=== PATIENT | male | born 1950 | race Caucasian/White ===

== ENCOUNTER 2016-11-24 08:52 | Inpatient (IN) | payer OTHER ==
[2016-11-24] VITALS (11 sets, daily range): BP systolic 125–150; BP diastolic 62–77; PULSE 87–120; RESP 12–20; O2SAT 95–98
[~2016-11-24] VITALS: Ht 175.3 cm; Wt 84.6 kg
[~2016-11-24 08:52] MED LIST: ALBU18HF INH; ALBU8.5H2 INHALATION; AMT25T PO; FLUT12AE10 IH; LOSA100T3 PO; LOVA20TA PO; METO25TA6 PO; OMEP20CA11 PO; OXYC1TAB24 PO; PRE20 PO
[2016-11-24 09:33] LABS: BASOPHILS % (AUTO) 0.2 % (0-3); EOSINOPHILS % (AUTO) 0.3 % (0-5); Mean Corpuscular Hemoglobin 31.3 pg (27.0-35.0); Mean Corpuscular Volume 92.4 fL (81-100); NEUTROPHILS % (AUTO) 78.9 % (40-74); Platelet Count 246 bil/L (150-400)
--- NOTE | 2016-11-24 09:44 | DRSVH ---
PROCEDURE: X-RAY CHEST, TWO VIEWS ([id number]) INDICATIONS: chest pain/SOB TECHNIQUE: 2 views of the chest were acquired. COMPARISON: [facility], CR, XR CHEST 1VW (PORTABLE), 01/07/2016, 11:15. [facility], CR, CHEST 2VW, 10/17/2012, 12:08. FINDINGS: Surgical changes and devices: None. Lungs and pleura: No pleural effusions or pneumothorax. Lungs are clear. Mediastinum: Mediastinal contours are normal. Heart size is normal. Bones and chest wall: No suspicious bony abnormalities. Soft tissues appear unremarkable. IMPRESSION: No acute process. Dictated by: Rona Fields M.D. on 11/24/2016 at 9:42 Approved by: Rona Fields M.D. on 11/24/2016 at 9:42
[2016-11-24 10:11] LABS: Magnesium 2.1 mg/dL (1.6-2.6)
--- NOTE | 2016-11-24 10:11 | ED.REPORT ---
HPI-Dyspnea / Wheezing Date of Service Nov 24, 2016 ED Provider: Gunnar Norris MD Patient is a 66 year old male who presents to the ED complaining of shortness of breath onset a few days ago. Associated symptoms include wheezing. pleuritic pain, chills, myalgia, and sweats. He denies cough, fever, or any other symptoms. He has been using his albuterol inhaler with a spacer 6x a day (normally only use in the morning and at night. He has been taking Percocet for his pain with his last dose being 2 days ago. Nursing Notes Stated Complaint: SHORT OF BREATH Chief Complaint: Respiratory Distress Nursing Notes Reviewed: Yes (Neurotrack, scroll kit not reconciled) Allergies: Coded Allergies: amoxicillin (Verified Allergy, Unknown, 11/24/16) clavulanic acid (Verified Allergy, Unknown, 11/24/16) lisinopril (Verified Allergy, Unknown, 11/24/16) Scheduled Losartan Potassium (Cozaar) 100 Mg Tablet 100 MG PO DAILY Lovastatin (Lovastatin) 20 Mg Tablet 20 MG PO HS Metoprolol Tartrate (Metoprolol Tartrate) 25 Mg Tablet 25 MG PO am Metoprolol Tartrate (Metoprolol Tartrate) 25 Mg Tablet 50 MG PO evening Scheduled PRN Albuterol HFA (Proair HFA) 8.5 Gm Hfa.aer.ad 2 PUFFS INHALATION Q4H PRN PRN For Shortness of Breath Albuterol Sulfate (Ventolin HFA Inhaler) 200 Puff/18 Gm Inhaler 2 PUFF INH Q4- 6H PRN PRN For Wheezing Amitriptyline (Amitriptyline) 25 Mg Tab 25 MG PO HS PRN PRN For Sleep Fluticasone Propionate (Flovent HFA 220 mcg) 12 Gm Aer.w.adap 2 PUFFS IH BID PRN PRN For Shortness of Breath Omeprazole (Omeprazole) 20 Mg Capsule.dr 20 MG PO DAILY PRN PRN For Dyspepsia or Heartburn oxyCODONE-Acetaminophen 5-325 mg (oxyCODONE-Acetaminophen 5-325 mg) 1 Each Tablet 1 TAB PO Q6H PRN PRN For Pain General Time Seen by MD: 10:07 Chief Complaint Shortness of breath Hx Obtained From: Patient, Spouse Arrived By: Walk-in Sudden in Onset?: Yes Onset Occurred: 3 days ago Symptom Duration: Since onset Past Medical History Past Medical History Notes: Admitted from 11/25/2015 - 12/02/2015: Discharge diagnoses: 1. Chronic obstructive pulmonary disease exacerbation. 2. Probable pneumonia, pneumococcal, community-acquired, right middle lobe and right lower lobe. 3. Leukocytosis, likely due to steroids. 4. Adenopathy by chest CT, with need for further followup. 5. Hypertension. 6. Chronic back pain, on chronic narcotics. Past Medical History Reports: COPD, Coronary artery disease, GERD, Hyperlipidemia, Hypertension Past Surgical History Nose operations Smoking History Current Every Day Smoker Social History Alcohol Use: 1-3 per day Drug Use: Denies drug use Other Social History: , Local resident Occupation [employer] Status Independent Review of Systems Constitutional: Reports: Chills, Denies: Fever Respiratory: Reports: Pleuritic pain, Shortness of breath, Denies: Non-productive cough Musculoskeletal: Reports: Myalgia Skin: Reports Diaphoresis Complete sys rev & neg: except as marked. Physical Exam Initial Vital Signs Vital Signs (First) Date Time Temp Pulse Resp B/P Pulse Ox O2 Delivery O2 Flow Rate FiO2 11/24/16 08:54 36.2 120 18 139/77 97 Room Air 11/24/16 10:39 2 Initial VS: Reviewed, Vital signs abnormal Head / Eyes: Atraumatic, Normocephalic Skin: Warm, Dry Neurologic: Alert, Oriented, Nonfocal Psychiatric: Mood/affect normal, Behavior normal, Normal thought content General/Constitutional: Awake, Alert Distress / Hydration: Positive: Distress mild Fatigued Neck: No JVD Resp Distress / Stridor: Positive: Resp distress mild Profound bronchospasms in all mcclure. Hacking cough. Still able to converse Cardiovascular: Regular rhythm, Heart sounds NL, Peripheral circulation NL Heart Rate / Rhythm: Positive: Tachycardia Interpretation & Diagnostics Lab Results Interpretation Result Diagram: 11/24/16 0920 11/24/16 0920 Test 11/24/16 09:20 11/24/16 10:53 White Blood Count 25.9th/mm3 (3.8-10.1) Red Blood Count 5.11mil/mm3 (4.40-5.80) Hemoglobin 16.0g/dL (13.8-17.2) Hematocrit 47.2% (41.0-50.0) Mean Corpuscular Volume 92.4fL (81-100) Mean Corpuscular Hemoglobin 31.3pg (27.0-35.0) Mean Corpuscular Hemoglobin Concent 33.9% (32.0-37.0) Red Cell Distribution Width 14.3% (12.3-15.4) Platelet Count 246bil/L (150-400) Neutrophils (%) (Auto) 78.9% (40-74) Lymphocytes (%) (Auto) 10.3% (14-46) Monocytes (%) (Auto) 10.0% (4-12) Eosinophils (%) (Auto) 0.3% (0-5) Basophils (%) (Auto) 0.2% (0-3) Sodium Level 136mEq/L (134-144) Potassium Level 3.8mEq/L (3.5-5.2) Chloride Level 96mEq/L (97-108) Carbon Dioxide Level 24mmol/L (18-29) Blood Urea Nitrogen 13mg/dL (8-27) Creatinine 0.76mg/dL (0.76-1.27) Estimat Glomerular Filtration Rate 110mL/min (>59) Glucose Level 134mg/dL (60-99) Lactic Acid Level 1.9mmol/L (0.4-2.0) Calcium Level 9.5mg/dL (8.5-10.1) Magnesium Level 2.1mg/dL (1.6-2.6) Total Bilirubin 1.5mg/dL (0.0-1.2) Aspartate Amino Transf (AST/SGOT) 17U/L (0-50) Alanine Aminotransferase (ALT/SGPT) 15U/L (0-44) Alkaline Phosphatase 93U/L (25-160) Troponin T < 0.010ug/L (0.0-0.011) Total Protein 7.6g/dL (6.4-8.4) Albumin 4.4g/dL (3.4-5.0) Hold [place]is Top Tube Received (Received) Hold Urine Received (Received) Lab Results Interpretation: CBC positive severe leukocytosis CMP normal except for marginally elevated bilirubin of uncertain clinical significance Flu negative Lactic acid normal ECG Interpretation ECG Interpretation: Sinus tachycardia rate 108 Time: 09:20 Interpreted by: ED physician X-Ray Chest Interpretation Chest Xray Interpretation: IMPRESSION: No acute process. Dictated by: Rona Fields M.D. on 11/24/2016 at 9:42 Approved by: Rona Fields M.D. on 11/24/2016 at 9:42 View: AP & lat Interpretation / Wet Read by: Interpret - Radiologist Re-Eval/Medical Decision Med Decision/Clinical Course This is a 66-year-old male with COPD continues to smoke presents with worsening shortness of breath, cough, chills, body aches and sweats. On exam he is severely bronchospastic, and reports short of breath with any minimal exertion and significant worsening his baseline. He has been using his home albuterol and FLOVENT added increased rate, but due the severity of symptoms came in. He is Afebrile, but he he is severely bronchospastic and gets short of breath with minimal exertion. He has no prior cardiac history no edema in his legs and overt signs of heart failure. He has no risk factors venous thromboembolus. X-ray is negative. Swab is negative. The patient received aggressive albuterol Atrovent and steroids. He remains bronchospastic and symptomatic even though his marginally improved. Given the severity of symptoms he is being admitted. Given the severity of his underlying COPD and a presentation and the severe leukocytosis he is being covered with antibiotics. Case has been Discussed the hospitalist. Source of Hx: Old records Re-Evaluation/Progress : Time of Eval: 11:34 )( Re-Eval Resp / Chest: Mild respiratory distress Re-Evaluation/Progress Note: Discussed need for admission. Patient understands and agrees with plan. All questions addressed at this time. Consultation : Referral / Consult Name: Pablo Nelson MD Consulted With: Hospitalist Call Returned at: 11:09 Rn Clinical Trials: Will see patient, Agrees with eval, Agrees with plan, Accepts admit Note: Discussed patient's case. Accepts admit. Differential Diagnosis: Positive: COPD exacerbation, Upper resp infection, Negative: Acute coronary syndrome, Airway obstruction, Cardiogenic shock, Hypertensive emergency, Myocardial infarction, Pulmonary embolism Counseled Regarding: Diagnosis, Lab results, Need for admission Discharge & Departure Impression: Primary Impression: COPD exacerbation Disposition: ADMITTED TO HOSPITAL Referrals: Urvashi Moore MD (PCP) Scribe Attestation Portions of this note were transcribed by Shaggy Anthony. Dr. Jr Diaz personally performed the history, physical exam and medical decision-making; I reviewed and confirmed the accuracy of the information in the transcribed note. Signed by: Shaggy Anthony 11/24/16, 1136 copies to: Urvashi Moore MD, Matthew F MD Nov 24, 2016 10:11 SHAGGY ANTHONY Nov 24, 2016 10:27
[2016-11-24 10:12] LABS: TROPONIN T < 0.010 ug/L (0.0-0.011)
[2016-11-24] MEDS ORDERED: 0.9% Sodium Chloride 1,000 ML IV ONE (10:20)
[2016-11-24] MEDS ORDERED: Ipratropium 0.02% 0.5 mg/2.5 mL Inhalation Solution NEB ONE ×2 (10:20→10:21)
[2016-11-24] MEDS ORDERED: Albuterol 2.5 mg/3 mL Inhalation Solution NEB ONE (10:20)
[2016-11-24] MEDS ORDERED: MethylprednisoLONE Sodium Succinate 62.5 mg/mL 2 mL Inj IVPUSH ONE (10:20)
[2016-11-24] MEDS ORDERED: oxyCODONE-Acetamin 5-325 mg Tablet PO ONE ×2 (10:20→15:15)
[2016-11-24] MEDS ORDERED: Azithromycin Inj 500 MG in Dextrose 5% w/Vial Mate 250 ML IV ONE (10:20)
[2016-11-24] MEDS ORDERED: METO25TA6 PO (11:33)
[2016-11-24] MEDS ORDERED: Ondansetron 2 mg/mL 2 mL Inj IVPUSH PRN (12:00)
[2016-11-24] MEDS ORDERED: Alum-Mag Hydrox-Simeth 30 mL Suspension PO PRN (12:00)
[2016-11-24] MEDS ORDERED: Polyethylene Glycol (PEG) 17 Gm Powder PO PRN (13:35)
[2016-11-24] MEDS ORDERED: Albuterol 2.5 mg/3 mL Inhalation Solution NEB PRN (13:35)
[2016-11-24 13:49] LABS: APPEARANCE,URINE TURBID (CLEAR,HAZY); COLOR,URINE DARK YELLOW (YELLOW); OCCULT BLOOD,URINE NEGATIVE (NEGATIVE); UROBILINOGEN,URINE NORMAL (NORMAL)
--- NOTE | 2016-11-24 14:40 | PCM.HPMED ---
Subjective Date of Service Nov 24, 2016 Primary Provider: Admitting Physician: Primary Care Physician: Urvashi Moore MD Attending Physician: Admit Status: From the Emergency Department, Admit to [place] Team Chief Complaint: Dyspnea History of Present Illness: Patient is a pleasant 66 year-old male with hx of COPD, and chronic smoking, CAD , hypertension, hyperlipidemia, GERD and chronic low back pain, who presents to the ED complaining of worsening dyspnea, mild cough, productive green phlegm, onset 3 days ago. Associated symptoms include wheezing. pleuritic pain, subjective fever, chills, myalgia, and sweats. He denies chest pain, nausea or vomiting. He did run out of his Flovent inhaler one week ago, and in the past 3 days had to use the albuterol inhaler up to 6 times, without much relief. Patient states he had a very similar episode one year ago and was hospitalized for 8 days. He only took Prednisone shortly after being discharged from the hospital last time, and has not taken since. Denies any sick contacts. Received flu shot Aug, 2016. Review of Systems: Complete system reviewed and was negative as otherwise noted in HPI. Allergies Coded Allergies: amoxicillin (Verified Allergy, Unknown, 11/24/16) patient reports of mild nausea clavulanic acid (Verified Allergy, Unknown, 11/24/16) lisinopril (Verified Allergy, Unknown, 11/24/16) Home Medications Losartan Potassium (Cozaar) 100 Mg Tablet 100 MG PO DAILY Lovastatin (Lovastatin) 20 Mg Tablet 20 MG PO HS Metoprolol Tartrate (Metoprolol Tartrate) 25 Mg Tablet 50 MG PO evening Scheduled PRN Albuterol HFA (Proair HFA) 8.5 Gm Hfa.aer.ad 2 PUFFS INHALATION Q4H PRN PRN For Shortness of Breath Amitriptyline (Amitriptyline) 25 Mg Tab 25 MG PO HS PRN PRN For Sleep Fluticasone Propionate (Flovent HFA 220 mcg) 12 Gm Aer.w.adap 2 PUFFS IH BID PRN PRN For Shortness of Breath Omeprazole (Omeprazole) 20 Mg Capsule.dr 20 MG PO DAILY PRN PRN For Dyspepsia or Heartburn oxyCODONE-Acetaminophen 5-325 mg (oxyCODONE-Acetaminophen 5-325 mg) 1 Each Tablet 1 TAB PO Q6H PRN PRN For Pain PMH COPD CAD GERD HTN HLP Surgical History nose surgery Family History Significant for premature cardiovascular disease in a brother who had a stroke at the age of 53. In addition, his father had an OR, but at a relatively elderly age. 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 [place] Hx Alcohol Use: Yes ("2 beers during football game") Hx Substance Use: Yes (smoke marijuana couple times a week) Hx Tobacco Use: Yes Smoking Status: Current Every Day Smoker (down to 1/2 pack a day) Living Arrangement: with Family Exam Vital Signs Vital Sign - Last Date Time Temp Pulse Resp B/P Pulse Ox O2 Delivery O2 Flow Rate FiO2 11/24/16 13:20 107 19 126/71 96 Nasal Cannula 2 11/24/16 08:54 36.2 Exam General/Constitutional: AAO x3, HEENT Atraumatic, Normocephalic, anicteric sclera, dry mucous membranes Neck Supple, No JVD Lungs: Significant rhonchi in all lung mcclure, Mild respiratory distress Cardiovascular: Regular rhythm, Heart sounds NL, Peripheral circulation NL, no edema Skin: Warm, dry and intact Neurologic: Alert, Oriented, Nonfocal Psychiatric: Mood/affect normal, Behavior normal, Normal thought content Lab and Diagnostics Result Diagram: 11/24/1691911/24/16919 X-Rays, CTs and MRIs Date of Service: 11/24/16907 PROCEDURE: X-RAY CHEST, TWO VIEWS ([id number]) INDICATIONS: chest pain/SOB IMPRESSION: No acute process. Dictated by: Rona Fields M.D. on 11/24/2016 at 9:42 Assessment & Plan Patient is a pleasant 66 year-old male with hx of COPD, and chronic smoking, CAD , hypertension, hyperlipidemia, GERD and chronic low back pain, who presents to the ED complaining of worsening dyspnea, mild cough, productive green phlegm, onset 3 days ago. COPD exacerbation, present on admission. patient out of his Flovent and has not been using for one week Solu Med 125mg IV every 8H today, will de-escalate tomorrow DuoNebs Q4H Albuterol PRN Probable pneumonia, community acquired, pneumococcal, present on admission. WBC 26 not on steroids. Rocephin and azithromycin (Day#1) CXR showed no acute process Procalcitonin pending BCx pending sputum pending PCR panel pending legionella ag and pneumococcal antigen pending Hypertension, chronic Continue losartan, amlodipine, and metoprolol. Chronic back pain continue home dose Percocet GERD Home dose omeprazole PRN Disposition. Anticipate discharge in 2-3 days. Problems: VTE Prophylaxis: Sub-Q Enoxaparin VTE Mechanical Devices: SCD Pain Evaluation: Adequate Pain Control GI Prophylaxis: Not indicated VTE Prophylaxis: Sub-Q Enoxaparin Resuscitation Status: CPR: Attempt Resuscitation Attending Statement The patient was seen and examined together with Dr. Quinones on 11/24/2016 and I agree with the history, exam and plan as outlined in the note above. Adrian Quinones DO Nov 24, 2016 13:52 Pablo Nelson MD Nov 25, 2016 10:37
[2016-11-24] MEDS: Albuterol-Ipratropium 3 mL Inhalation Solution NEB SCH ×2 (16:39→20:00)
[2016-11-24] MEDS: MethylprednisoLONE Sodium Succinate 62.5 mg/mL 2 mL Inj IVPUSH SCH (17:07)
[2016-11-24] MEDS: 0.9% Sodium Chloride 1,000 ML IV SCH (17:08)
[2016-11-24] MEDS ORDERED: Pantoprazole 40 mg ER24 Tablet PO PRN (18:20)
--- NOTE | 2016-11-24 18:36 | NUR ---
ADMIT Admitted a 66/M into room 3015 this afternoon at 1600 following report from DAKOTA العراقي RN. Pt arrived via w/c, amb to BR without assist and steady on feet. He arrived on 2L via NC, 02 sat 97% so RT decreased 02 to 1L. Pt stated he has been having increasing dyspnea, a productive cough and feels "sore and stiff all over." Pt did c/o heartburn upon arrival, PRN Maalox effective. Pt is using urinal at bedside to conserve energy. IV in L AC, NS running at 100ml/hr. Pt reports a flu shot in August of 2016. TELE placed, currently running SR in the 's. Blood cx are pending, flu panel was negative for Influenza A & B. Pt is a daily smoker. Samantha accompanying pt. Upon arrival, pt introduced to staff and call light/bed controls. Currently resting, bed in lowest, locked position.
[2016-11-24] MEDS: oxyCODONE-Acetamin 5-325 mg Tablet PO PRN (19:53)
[2016-11-25] VITALS (14 sets, daily range): BP systolic 118–148; BP diastolic 56–80; PULSE 70–94; RESP 12–22; O2SAT 94–98
[2016-11-25] MEDS: Albuterol-Ipratropium 3 mL Inhalation Solution NEB SCH ×6 (00:49→20:05)
[2016-11-25] MEDS: MethylprednisoLONE Sodium Succinate 62.5 mg/mL 2 mL Inj IVPUSH SCH ×3 (00:53→16:30)
[2016-11-25] MEDS: oxyCODONE-Acetamin 5-325 mg Tablet PO PRN ×5 (01:53→20:23)
[2016-11-25] MEDS: 0.9% Sodium Chloride 1,000 ML IV SCH ×3 (02:57→20:28)
--- NOTE | 2016-11-25 04:42 | NUR ---
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 PRN dose of Amitriptyline given with no success. Pt reports chronic pain and takes Oxycodone 5/325 at home Q4H. Oxycodone ordered and given Q6H, monitoring to see if pt can tolerate longer frequency. Will pass to day shift and possible need to ask MD about changing frequency.
[2016-11-25 07:19] LABS: BASOPHILS % (AUTO) 0 % (0-3); EOSINOPHILS % (AUTO) 0 % (0-5); MONOCYTES % (AUTO) 2.6 % (4-12); Mean Corpuscular Volume 93.5 fL (81-100); Platelet Count 241 bil/L (150-400)
[2016-11-25] MEDS: cefTRIAXone Inj 2,000 MG in IV Premix 1 EACH IV SCH (07:56)
[2016-11-25] MEDS: Azithromycin Inj 500 MG in Dextrose 5% w/Vial Mate 250 ML IV SCH (08:52)
[2016-11-25] MEDS ORDERED: guaiFENesin 600 mg ER12 Tablet PO SCH (10:32)
--- NOTE | 2016-11-25 13:59 | NUR ---
Social Work-initial assessment/readiness for discharge: Data:EMR reviewed. Pt is a 66 y/o male who was admitted on 11/24/16 for COPD exacerbation per H&P. Pt's insurance is [employer] and PCP is Urvashi Moore MD. EMR Reviewed. SW met with pt to discuss discharge planning, SW role explained. Pt resides at home with his in [place] where he remains independent with ADLs. Pt does not use any DME and drives. Pt has no HH or SNF history. Pt has no exterminator termite care or VA benefits. SW discussed DPOA/advanced with pt, pt has not completed this information and is not interested at this time. Per RN notes, pt has been up independent in his room. Pt's to provide transport home. No anticipated discharge needs. SW will continue to follow if needs arise. Assessment:Pt who is independent at baseline. Plan:Pt to discharge home when medically stable via POV. No anticipated discharge needs. SW will continue to follow if needs arise. JOSHUA Madrigal
[2016-11-25] MEDS: guaiFENesin 600 mg ER12 Tablet PO SCH ×2 (14:07→20:24)
--- NOTE | 2016-11-25 14:22 | PCM.PNMED ---
Subjective Date of Service Nov 25, 2016 Subjective Overnight events: Patient had difficulty sleeping due to chronic back pain and feeling chills then feeling hot. Today, patient reports his breathing has improved, but still having difficulty taking deep breaths. Patient states the nebulizers help much. Breathing treatment helps much. Denies fevers, chills, nausea or vomiting. Patient determined to quit smoking. Exam Vital Signs Vital Sign - Last Date Time Temp Pulse Resp B/P Pulse Ox O2 Delivery O2 Flow Rate FiO2 11/25/16 07:30 72 18 98 Room Air 11/25/16 05:33 36.4 118/56 11/24/16 20:38 1.00 Intake and Output 11/24/16 11/24/16 11/25/16 Cumulative From/Thru 15:00 23:00 07:00 11/24/16 08:54 - 11/25/16 06:02 Intake Total 1000 ml 780 ml 1780 ml Output Total 200 ml 450 ml 650 ml Balance 1000 ml -200 ml 330 ml 1130 ml Intake Oral 780 ml 780 ml IV Total 1000 ml 1000 ml Output Urine Total 200 ml 450 ml 650 ml # Bowel Movements 0 0 Exam General/Constitutional: AAO x3, NAD HEENT Atraumatic, Normocephalic, anicteric sclera, moist mucous membranes Neck Supple, No JVD Lungs: Expiratory wheezes in all lung mcclure, much improved from yesterday Cardiovascular: Regular rhythm, Heart sounds NL, Peripheral circulation NL, no edema Skin: Warm, dry and intact MSK: Tender to palpation on low back Neurologic: Alert, Oriented, Nonfocal Psychiatric: Mood/affect normal, Behavior normal, Normal thought content IVs and Medications Medications Reviewed: Medications were reviewed in detail Lab and Diagnostics Result Diagram: 11/25/16 0505 11/25/16 0505 X-Rays, CTs and MRIs Date of Service: 11/24/16 0908 PROCEDURE: X-RAY CHEST, TWO VIEWS ([id number]) INDICATIONS: chest pain/SOB IMPRESSION: No acute process. Dictated by: Rona Fields M.D. on 11/24/2016 at 9:42 Assessment & Plan Patient is a pleasant 66 year-old male with hx of COPD, and chronic smoking, CAD , hypertension, hyperlipidemia, GERD and chronic low back pain, who presents to the ED complaining of worsening dyspnea, mild cough, productive green phlegm, onset 3 days ago. Day 1. COPD exacerbation, present on admission. patient out of his Flovent and has not been using for one week Solu Med 60mg IV every 8H today, will transit to PO prednisone tomorrow if patient continues to improve DuoNebs Q4H Albuterol PRN Probable pneumonia, community acquired, pneumococcal, present on admission. WBC 26 not on steroids, improving. Rocephin and azithromycin (Day#1) will consider DC if procalcitonin is negative CXR showed no acute process Procalcitonin pending BCx - negative 24H sputum pending strep negative and influenza screen negative PCR panel pending legionella ag pending Hypertension, chronic Continue losartan, amlodipine, and metoprolol. Chronic back pain continue home dose Percocet GERD Home dose omeprazole PRN Disposition. Anticipate discharge in 2-3 days. Problems: VTE Prophylaxis: Sub-Q Enoxaparin VTE Mechanical Devices: SCD GI Prophylaxis: Not indicated VTE Prophylaxis: Sub-Q Enoxaparin VTE Mechanical Devices: Intermittant Pneumatic CD Resuscitation Status: CPR: Attempt Resuscitation Attending Statement The patient was seen and examined together with Dr. Quinones on 11/25/2016 and I agree with the history, exam and plan as outlined in the note above. Adrian Quinones DO Nov 25, 2016 08:30 Pablo Nelson MD Nov 26, 2016 13:34
--- NOTE | 2016-11-25 15:34 | NUR ---
Urination/Pain/cough Patient reporting he has the urge to urinate-but is urinating very little. Bladder scan indicated 32 mls in bladder. Patient reporting chronic back pain. Patient encouraged to sit in chair/get out of bed. Pain medication given per order with good results. Patient reporting a cough "I just feel like I have this thick/sticky stuff stuck down my throat that I can't get up". Hospitalist notified-Guaifenesin ordered.
[2016-11-25] MEDS ORDERED: guaiFENesin 20 mg/mL 10 mL Syrup PO ONE (17:45)
[2016-11-26] VITALS (16 sets, daily range): BP systolic 147–165; BP diastolic 67–82; PULSE 69–99; RESP 16–22; O2SAT 95–100
[2016-11-26] MEDS: MethylprednisoLONE Sodium Succinate 62.5 mg/mL 2 mL Inj IVPUSH SCH ×2 (00:45→09:20)
[2016-11-26] MEDS: Albuterol-Ipratropium 3 mL Inhalation Solution NEB SCH ×6 (00:45→21:09)
[2016-11-26] MEDS: oxyCODONE-Acetamin 5-325 mg Tablet PO PRN ×6 (00:48→22:57)
[2016-11-26] MEDS: 0.9% Sodium Chloride 1,000 ML IV SCH ×2 (05:34→17:55)
[2016-11-26 05:51] LABS: BASOPHILS % (AUTO) 0 % (0-3); EOSINOPHILS % (AUTO) 0 % (0-5); MONOCYTES % (AUTO) 3.1 % (4-12); Mean Corpuscular Hemoglobin 31.6 pg (27.0-35.0); Mean Corpuscular Volume 94.7 fL (81-100); NEUTROPHILS % (AUTO) 93.8 % (40-74); Platelet Count 275 bil/L (150-400)
--- NOTE | 2016-11-26 06:16 | NUR ---
Respiratory effort, pain and sleep. Patient reported that between intermittent bouts of chronic pain he slept well. Patient required consistent nebs and pain medications to keep him comfortable throughout the night. Patient's vitals remained stable and at this point patient is free of complaints.
--- NOTE | 2016-11-26 07:32 | NUR ---
Fall While giving report to the on coming shift patient was heard yelling. Patient was found on one knee at the end of his bed holding on to the foot board. Patient reported that he had gotten dizzy and fell to his knees. Patient was assessed for injury and then helped back into bed. Patient reports that he is feeling well other then his knees hurt. Vitals are stable. CMS is intact to baseline in all extremities. Patient denies new head, neck or back pain. Patient denies striking his head or LOC. Patient is A/Ox4 and answering all questions appropriately.
[2016-11-26] MEDS: guaiFENesin 600 mg ER12 Tablet PO SCH ×2 (09:20→20:03)
[2016-11-26] MEDS: Azithromycin Inj 500 MG in Dextrose 5% w/Vial Mate 250 ML IV SCH (09:21)
[2016-11-26] MEDS: cefTRIAXone Inj 2,000 MG in IV Premix 1 EACH IV SCH (11:31)
[2016-11-26] MEDS: predniSONE 20 mg Tablet PO SCH (11:54)
--- NOTE | 2016-11-26 12:55 | PCM.PNMED ---
Subjective Date of Service Nov 26, 2016 Subjective No overnight events. Today, patient states as long as he is lying down, he is not short of breath, but just going to the bathroom makes breathing difficult. Still cannot cough up what he feels needs to be come up, although patient states the mucus is getting thinner. Denies CP, fevers or chills. Exam Vital Signs Vital Sign - Last Date Time Temp Pulse Resp B/P Pulse Ox O2 Delivery O2 Flow Rate FiO2 11/26/16 07:43 82 18 99 Nasal Cannula 4.00 11/26/16 07:19 36.4 155/76 Intake and Output 11/25/16 11/25/16 11/26/16 Cumulative From/Thru 15:00 23:00 07:00 11/24/16 08:54 - 11/26/16 05:46 Intake Total 1388 ml 1785 ml 1176 ml 6129 ml Output Total 200 ml 850 ml Balance 1388 ml 1585 ml 1176 ml 5279 ml Intake Oral 700 ml 1480 ml IV Total 1388 ml 1085 ml 1176 ml 4649 ml Output Urine Total 200 ml 850 ml # Bowel Movements 0 Exam General/Constitutional: AAO x3, mild respiratory distress after sitting back down HEENT Atraumatic, Normocephalic, anicteric sclera, moist mucous membranes Neck Supple, No JVD Lungs: Expiratory wheezes in all lung mcclure, slightly worsened from yesterday Cardiovascular: Regular rhythm, Heart sounds NL, Peripheral circulation NL, no edema Skin: Warm, dry and intact Neurologic: Alert, Oriented, Nonfocal Psychiatric: Mood/affect normal, Behavior normal, Normal thought content IVs and Medications Medications Reviewed: Medications were reviewed in detail Lab and Diagnostics Result Diagram: 11/26/1637 11/26/16 0537 X-Rays, CTs and MRIs Date of Service: 11/24/16 0908 PROCEDURE: X-RAY CHEST, TWO VIEWS ([id number]) INDICATIONS: chest pain/SOB IMPRESSION: No acute process. Dictated by: Rona Fields M.D. on 11/24/2016 at 9:42 Assessment & Plan Patient is a pleasant 66 year-old male with hx of COPD, and chronic smoking, CAD , hypertension, hyperlipidemia, GERD and chronic low back pain, who presents to the ED complaining of worsening dyspnea, mild cough, productive green phlegm, onset 3 days ago. Day 2. COPD exacerbation, present on admission. Ongoing. patient out of his Flovent and has not been using for one week PO prednisone 40mg DuoNebs Q4H and Albuterol PRN Acapella and incentive spirometry Repeat CXR this am patient to be up and active today to prevent atelectasis Probable pneumonia, community acquired, pneumococcal, present on admission. WBC 28 currently on steroids Continue Rocephin and azithromycin Day#2 CXR 11/24 showed no acute process with repeat CXR pending BCx - negative 24H strep negative and influenza screen negative PCR panel negative sputum pending legionella ag pending Hypertension, chronic Continue losartan, amlodipine, and metoprolol. Chronic back pain continue home dose Percocet GERD Home dose omeprazole PRN Disposition. Anticipate discharge in 2-3 days. Problems: VTE Prophylaxis: Sub-Q Enoxaparin VTE Mechanical Devices: SCD GI Prophylaxis: Not indicated VTE Prophylaxis: Sub-Q Enoxaparin VTE Mechanical Devices: Intermittant Pneumatic CD Resuscitation Status: CPR: Attempt Resuscitation Attending Statement The patient was seen and examined together with Dr. Quinones on 11/26/2016 and I agree with the history, exam and plan as outlined in the note above. Adrian Quinones DO Nov 26, 2016 08:45 Pablo Nelson MD Nov 27, 2016 13:55
--- NOTE | 2016-11-26 13:40 | DRSVH ---
PROCEDURE: X-RAY CHEST, TWO VIEWS ([id number]) INDICATIONS: pneumonia TECHNIQUE: 2 views of the chest were acquired. COMPARISON: [facility], CR, XR CHEST 2VW, 11/24/2016, 9:31. FINDINGS: Surgical changes and devices: None. Lungs and pleura: No pleural effusions or pneumothorax. Lungs are clear. Mediastinum: Mediastinal contours are normal. Heart size is normal. Bones and chest wall: No suspicious bony abnormalities. Soft tissues appear unremarkable. IMPRESSION: No acute cardiopulmonary findings. Dictated by: Meghan Horn M.D. on 11/26/2016 at 13:38 Approved by: Meghan Horn M.D. on 11/26/2016 at 13:38
--- NOTE | 2016-11-26 18:29 | NUR ---
Fall/Near Fall At beginning of shift change this morning, patient heard exclaiming loudly and swearing. Patient found at the foot of his bed, in the act of rising to his feet. Patient reports he was coming out the the bathroom, became dizzy and fell to his knees. No redness/bruising or apparent injury. Patient denied any increase or change from his normal pain throughout the shift. 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 Hospitalist notified.
[2016-11-27] VITALS (10 sets, daily range): BP systolic 108–158; BP diastolic 62–80; PULSE 65–98; RESP 18–24; O2SAT 93–99
[2016-11-27] MEDS: Albuterol-Ipratropium 3 mL Inhalation Solution NEB SCH ×6 (00:30→20:19)
[2016-11-27] MEDS: 0.9% Sodium Chloride 1,000 ML IV SCH ×3 (02:35→23:45)
[2016-11-27] MEDS: oxyCODONE-Acetamin 5-325 mg Tablet PO PRN ×6 (02:50→23:45)
[2016-11-27 06:58] LABS: BASOPHILS % (AUTO) 0.1 % (0-3); EOSINOPHILS % (AUTO) 0 % (0-5); Mean Corpuscular Hemoglobin 30.6 pg (27.0-35.0); Mean Corpuscular Volume 95.4 fL (81-100); Platelet Count 280 bil/L (150-400)
[2016-11-27] MEDS: predniSONE 20 mg Tablet PO SCH (08:17)
[2016-11-27] MEDS: guaiFENesin 600 mg ER12 Tablet PO SCH ×2 (08:18→20:39)
[2016-11-27] MEDS: Azithromycin Inj 500 MG in Dextrose 5% w/Vial Mate 250 ML IV SCH (08:18)
[2016-11-27] MEDS: cefTRIAXone Inj 2,000 MG in IV Premix 1 EACH IV SCH (09:33)
[2016-11-27] MEDS: Benzocaine-Menthol Lozenge 2/Pkg PO PRN ×3 (11:43→18:47)
--- NOTE | 2016-11-27 12:57 | PCM.PNMED ---
Subjective Date of Service Nov 27, 2016 Subjective No overnight events. Patient today reports of new onset of sore throat. SOB has not changed since yesterday. Has his baseline cough and has not been coughing up much of anything. Denies CP, fevers, chills or nausea. Exam Vital Signs Vital Sign - Last Date Time Temp Pulse Resp B/P Pulse Ox O2 Delivery O2 Flow Rate FiO2 11/27/16 11:10 65 20 98 Room Air 11/27/16 04:36 158/78 11/27/16 04:35 36.7 11/26/16 12:19 Intake and Output 11/26/16 11/26/16 11/27/16 Cumulative From/Thru 15:00 23:00 07:00 11/24/16 08:54 - 11/27/16 07:00 Intake Total 820 ml 785 ml 1600 ml 9334 ml Output Total 825 ml 300 ml 1975 ml Balance 820 ml -40 ml 1300 ml 7359 ml Intake Oral 820 ml 785 ml 400 ml 3485 ml IV Total 1200 ml 5849 ml Output Urine Total 825 ml 300 ml 1975 ml # Voids 2 4 6 # Bowel Movements 0 0 0 Exam General/Constitutional: AAO x3, in moderate respiratory distress after walking 1/[address] white with PT HEENT Atraumatic, Normocephalic, anicteric sclera, moist mucous membranes, erythematous oropharynx, no tonsillar swelling or exudates Neck Supple, No JVD Lungs: Expiratory wheezes in all lung mcclure, slightly improved from yesterday Cardiovascular: Regular rhythm, Heart sounds NL, Peripheral circulation NL, no edema Skin: Warm, dry and intact Neurologic: Alert, Oriented, Nonfocal Psychiatric: Mood/affect normal, Behavior normal, Normal thought content IVs and Medications Medications Reviewed: Medications were reviewed in detail Lab and Diagnostics Result Diagram: 11/27/16 0635 11/27/16 0635 X-Rays, CTs and MRIs Date of Service: 11/24/16 0908 PROCEDURE: X-RAY CHEST, TWO VIEWS ([id number]) INDICATIONS: chest pain/SOB IMPRESSION: No acute process. Dictated by: Rona Fields M.D. on 11/24/2016 at 9:42 Assessment & Plan Patient is a pleasant 66 year-old male with hx of COPD, and chronic smoking, CAD , hypertension, hyperlipidemia, GERD and chronic low back pain, who presents to the ED complaining of worsening dyspnea, mild cough, productive green phlegm, onset 3 days ago. Day 3. COPD exacerbation, present on admission. Improving. Echocardiogram 11/26/15 with EF of 65-70% no valvular or wall findings patient out of his Flovent and has not been using for one week Continue PO prednisone 40mg (Day2) DuoNebs Q4H and Albuterol PRN Acapella and incentive spirometry Repeat CXR negative PT eval pending patient to be up and active today to prevent atelectasis Probable pneumonia, community acquired, pneumococcal, present on admission. WBC 19.2 currently on steroids Continue Rocephin and azithromycin Day#3 CXR 11/24 showed no acute process with repeat CXR negative on 11/26 BCx - no growth 2 days strep negative and influenza screen negative PCR panel negative sputum pending legionella ag pending Hypertension, chronic Continue losartan, amlodipine, and metoprolol. Chronic back pain continue home dose Percocet GERD Home dose omeprazole PRN Disposition. Anticipate discharge in 2-3 days. Problems: VTE Prophylaxis: Sub-Q Enoxaparin VTE Mechanical Devices: SCD GI Prophylaxis: Not indicated VTE Prophylaxis: Sub-Q Enoxaparin VTE Mechanical Devices: Intermittant Pneumatic CD Resuscitation Status: CPR: Attempt Resuscitation Attending Statement The patient was seen and examined together with Dr. Quinones on 11/27/2016 and I agree with the history, exam and plan as outlined in the note above. Adrian Quinones DO Nov 27, 2016 12:53 Pablo Nelson MD Nov 27, 2016 13:55
--- NOTE | 2016-11-27 13:33 | NUR ---
Evaluation completed. Please go to "Notes" then click on "Assessments and Notes" (bottom left corner of screen). Then select appropriate discipline tab on top of screen.
--- NOTE | 2016-11-27 15:51 | NUR ---
Shortness of Breath Patient continues to become short of breath with coughing or exertion. During periods of shortness of breath, patient O2 sats remain 95% or better. Neb treatment helpful when patient having feelings of shortness of breath.
[2016-11-28] VITALS (13 sets, daily range): BP systolic 150–170; BP diastolic 76–90; PULSE 64–81; RESP 18–20; O2SAT 94–98
[2016-11-28] MEDS: Albuterol-Ipratropium 3 mL Inhalation Solution NEB SCH ×6 (00:10→20:17)
[2016-11-28] MEDS: oxyCODONE-Acetamin 5-325 mg Tablet PO PRN ×5 (03:49→20:58)
[2016-11-28] MEDS: 0.9% Sodium Chloride 1,000 ML IV SCH (07:34)
[2016-11-28] MEDS: Azithromycin Inj 500 MG in Dextrose 5% w/Vial Mate 250 ML IV SCH (08:05)
[2016-11-28] MEDS: predniSONE 20 mg Tablet PO SCH (08:08)
[2016-11-28] MEDS: cefTRIAXone Inj 2,000 MG in IV Premix 1 EACH IV SCH (09:05)
--- NOTE | 2016-11-28 10:41 | PCM.PNMED ---
Subjective Date of Service Nov 28, 2016 Subjective No overnight events. Patient states he continues to be short of breath. Denies CP, fevers or chills. Exam Vital Signs Vital Sign - Last Date Time Temp Pulse Resp B/P Pulse Ox O2 Delivery O2 Flow Rate FiO2 11/28/16 08:51 75 18 97 Room Air 11/28/16 07:12 170/76 11/28/16 05:06 36.6 11/26/16 12:19 Intake and Output 11/27/16 11/27/16 11/28/16 Cumulative From/Thru 15:00 23:00 07:00 11/24/16 08:54 - 11/28/16 06:11 Intake Total 2242 ml 2210 ml 73431 ml Output Total 1225 ml 900 ml 4100 ml Balance 1017 ml 1310 ml 9686 ml Intake Oral 1122 ml 700 ml 5307 ml IV Total 1120 ml 1510 ml 8479 ml Output Urine Total 1225 ml 900 ml 4100 ml # Voids 1 7 # Bowel Movements 1 1 2 Exam General/Constitutional: AAO x3, in NAD talking in full sentences to RN and on phone HEENT Atraumatic, Normocephalic, anicteric sclera, moist mucous membranes Neck Supple, No JVD Lungs: Expiratory wheezes in all lung mcclure, significantly improvement from yesterday Cardiovascular: Regular rhythm, Heart sounds NL, Peripheral circulation NL, no edema Skin: Warm, dry and intact Neurologic: Alert, Oriented, Nonfocal Psychiatric: Mood/affect normal, Behavior normal, Normal thought content IVs and Medications Medications Reviewed: Medications were reviewed in detail Lab and Diagnostics Result Diagram: 11/27/16 0635 11/27/16 0635 X-Rays, CTs and MRIs Date of Service: 11/24/16 0908 PROCEDURE: X-RAY CHEST, TWO VIEWS ([id number]) INDICATIONS: chest pain/SOB IMPRESSION: No acute process. Dictated by: Rona Fields M.D. on 11/24/2016 at 9:42 Assessment & Plan Patient is a pleasant 66 year-old male with hx of COPD, and chronic smoking, CAD , hypertension, hyperlipidemia, GERD and chronic low back pain, who presents to the ED complaining of worsening dyspnea, mild cough, productive green phlegm, onset 3 days ago. Day 4. COPD exacerbation, present on admission. Improving. Echocardiogram 11/26/15 with EF of 65-70% no valvular or wall findings patient out of his Flovent and has not been using for one week Continue PO prednisone 40mg (Day3) DuoNebs Q4H and Albuterol PRN Acapella and incentive spirometry Repeat CXR negative on 11/26/16 PT recommends home with possible AD Pt out of Flovent, will need Rx at discharge Probable pneumonia, community acquired, pneumococcal, present on admission. Resolved. WBC 19.2 currently on steroids, now at 17 d/c Rocephin and azithromycin CXR 11/24 showed no acute process with repeat CXR negative on 11/26 BCx - no growth strep negative and influenza screen negative PCR panel negative sputum pending legionella ag pending Hypertension, chronic Continue losartan, amlodipine, and metoprolol. Chronic back pain continue home dose Percocet GERD Home dose omeprazole PRN Disposition. Anticipate discharge home tomorrow with no needs . Problems: VTE Prophylaxis: Sub-Q Enoxaparin VTE Mechanical Devices: SCD GI Prophylaxis: Not indicated VTE Prophylaxis: Sub-Q Enoxaparin VTE Mechanical Devices: Intermittant Pneumatic CD Resuscitation Status: CPR: Attempt Resuscitation Attending Statement The patient was seen and examined together with Dr. Quinones on 11/28/2016 and I agree with the history, exam and plan as outlined in the note above. Adrian Quinones DO Nov 28, 2016 10:00 Pablo Nelson MD Nov 29, 2016 10:58
[2016-11-28 10:54] LABS: BASOPHILS % (AUTO) 0.2 % (0-3); EOSINOPHILS % (AUTO) 0.4 % (0-5); MONOCYTES % (AUTO) 9.2 % (4-12); Mean Corpuscular Hemoglobin 30.9 pg (27.0-35.0); Mean Corpuscular Volume 93.3 fL (81-100); NEUTROPHILS % (AUTO) 80.6 % (40-74); Platelet Count 285 bil/L (150-400)
[2016-11-28] MEDS: guaiFENesin 600 mg ER12 Tablet PO SCH ×2 (11:16→20:58)
--- NOTE | 2016-11-28 11:45 | NUR ---
Social Work-readiness for discharge: data:EMR reviewed. Pt is on day 4 of hospitalization for COPD exacerbation per H&P. Pt is not medically stable, anticipate another day or two. Pt resides at home with his where he remains independent with ADLs. PT worked with pt yesterday and recommend home no needs. Pt's family to provide transport home at discharge. No anticipated discharge needs. SW will continue to follow if needs arise. Assessment:pt who is independent at baseline. Plan:Pt to discharge home when medically stable via POV. No anticipated discharge needs. SW will continue to follow if needs arise. JOSHUA Madrigal
--- NOTE | 2016-11-28 12:16 | NUR ---
Meds/RT Pt with hx of smoking, last cigarette 10 days ago. Pt has Nicotine patch PRN, pt refused one this AM. States he will ask for it when it's needed. Pt asks for pain meds Q4 hrs, has a PRN order. pain at 7-8/10 in low back. Ambulation encouraged. IS and Acapella provided to pt with teaching by RT. IVF d/c earlier on shift. Will continue with frequent rounding.
[2016-11-29] VITALS: PULSE 75; RESP 16; O2SAT 98
[2016-11-29] MEDS: oxyCODONE-Acetamin 5-325 mg Tablet PO PRN ×3 (03:52→12:02)
[2016-11-29 04:21] VITALS: PULSE 82; RESP 18; O2SAT 98
[2016-11-29] MEDS: Albuterol-Ipratropium 3 mL Inhalation Solution NEB SCH ×4 (04:21→11:59)
[2016-11-29 05:20] VITALS: BP 152/74; PULSE 69; RESP 18; O2SAT 97
--- NOTE | 2016-11-29 05:52 | NUR ---
Pain Pt complains of generalized pain on his back, 05/24. Percocet administered PRN. No complains after. Denies chest pain, SOB, N/v and abd discomfort. Pt has slept most of the night.
[2016-11-29 07:03] LABS: BASOPHILS % (AUTO) 0.2 % (0-3); EOSINOPHILS % (AUTO) 1.6 % (0-5); MONOCYTES % (AUTO) 9.1 % (4-12); Mean Corpuscular Hemoglobin 30.9 pg (27.0-35.0); Mean Corpuscular Volume 93.4 fL (81-100); NEUTROPHILS % (AUTO) 62.5 % (40-74); Platelet Count 271 bil/L (150-400)
[2016-11-29 07:51] VITALS: PULSE 76; RESP 20; O2SAT 96
[2016-11-29] MEDS: predniSONE 20 mg Tablet PO SCH (08:00)
[2016-11-29] MEDS: guaiFENesin 600 mg ER12 Tablet PO SCH (08:00)
[2016-11-29] MEDS ORDERED: PRED-508 PO (09:03)
[2016-11-29] MEDS ORDERED: LEVO750T9 PO (09:04)
--- NOTE | 2016-11-29 09:05 | PCM.DIMED ---
Discharge Instructions Date of Service Nov 29, 2016 Dates of Hospitalization Nov 24, 2016 at 15:47 Discharge Diagnosis Discharge Diagnosis 1. Community Acquired Pneumonia 2. Acute Respiratory Failure, Hypoxemic, Resolved 3. COPD, Acute Exacerbation, Resolving 4. Tobacco Use Disorder Diet Low fat, Low Sodium, Heart Healthy Activity No restrictions Call your provider Fever or Chills, Shortness of breath, Bleeding, Chest pain, Vomitting, Excessive diarrhea, Weakness (unilateral) Patient Instructions Follow-up with PCP in: 1 week (Pt to call for an appointment.) Pablo Nelson MD Nov 29, 2016 09:05
[2016-11-29 10:22] VITALS: BP 164/73; PULSE 75; RESP 18; O2SAT 98
--- NOTE | 2016-11-29 10:42 | NUR ---
Social Work-discharge: Data:EMR Reviewed. Pt is on day 5 of hospitalization for COPD exacerbation per H&P. Pt is medically stable for discharge today. PT has cleared pt for home no needs. Pt ambulated 100 ft SBA. SW confirmed plan of home no needs. Pt's to provide transport home today. No discharge needs identified. All updated and agreeable to plan. Assessment:Pt who is independent at baseline. Plan:Pt to discharge home today via POV. No discharge needs identified. All updated and agreeable to plan. JOSHUA Madrigal
--- NOTE | 2016-11-29 11:05 | PCM.DC.MED ---
Discharge Summary Date of Service Nov 29, 2016 Dates of Hospitalization Date of Hospital Admission Nov 24, 2016 at 15:47 Date of Discharge: Nov 29, 2016 Providers: Admitting Physician: Lu Lee MD Primary Care Physician: Urvashi Moore MD Attending Physician: Lu Lee MD Diagnosis at Time of Discharge Diagnosis at Time of Discharge 1. Community Acquired Pneumonia 2. Acute Respiratory Failure, Hypoxemic, Resolved 3. COPD, Acute Exacerbation, Resolving 4. Tobacco Use Disorder Procedures XRay, CTs & MRIs Date of Service: 11/24/16 0908 PROCEDURE: X-RAY CHEST, TWO VIEWS ([id number]) INDICATIONS: chest pain/SOB IMPRESSION: No acute process. Dictated by: Rona Fields M.D. on 11/24/2016 at 9:42 Brief History Patient is a pleasant 66 year-old male with hx of COPD, and chronic smoking, CAD , hypertension, hyperlipidemia, GERD and chronic low back pain, who presents to the ED complaining of worsening dyspnea, mild cough, productive green phlegm, onset 3 days ago. Associated symptoms include wheezing. pleuritic pain, subjective fever, chills, myalgia, and sweats. He denies chest pain, nausea or vomiting. He did run out of his Flovent inhaler one week ago, and in the past 3 days had to use the albuterol inhaler up to 6 times, without much relief. Patient states he had a very similar episode one year ago and was hospitalized for 8 days. He only took Prednisone shortly after being discharged from the hospital last time, and has not taken since. Denies any sick contacts. Received flu shot Aug, 2016. Hospital Course Patient is a pleasant 66 year-old male with hx of COPD, and chronic smoking, CAD , hypertension, hyperlipidemia, GERD and chronic low back pain, who presents to the ED complaining of worsening dyspnea, mild cough, productive green phlegm, onset 3 days ago. Day 4. 1. Acute Respiratory Failure with Hypoxemia - Resolved - Present on admission - Secondary to Pneumonia and COPD Exacerbation - Pt has been weaned off supplemental O2 and his SpO2 on day of discharge is 98 % on room air while at rest and with activity 2. Community Acquired Pneumonia - Present on admission - Resolving - Pt was initially on IV Rocephin and Azithromycin and received 5 days of therapy - Pt to take Levaquin 750 mg PO daily for an additional 2 days - Follow-up with PCP within a week of discharge and have a repeat chest x-ray - WBC count was initially 28K but is 13K on day of discharge and pt is afebrile with a normal procalcitonin 3. COPD, Acute Exacerbation - Resolving - Pt was initially started on Solu-Medrol 125 mg q 6 hours and this was de- escalated to PO Prednisone - Continue PO prednisone for 5 more days as an outpatient - Continue Albuterol PRN at home 4. Essential Hypertension - Continue home Losartan - Continue home Norvasc - Continue home Metoprolol 5. Chronic Back Pain - Continue Percocet PRN Exam Vital Signs (Last) Date Time Temp Pulse Resp B/P Pulse Ox O2 Delivery O2 Flow Rate FiO2 11/29/16 10:22 36.5 75 18 164/73 98 Room Air 11/26/16 12:19 Exam GENERAL: NAD, Pt laying in bed comfortably HEENT: AT/NC, PERRLA, EOMI, Mucus Membranes are moist CARDIAC: RRR; No M/R/G PULM: CTAB; No wheezes or rhonchi bilaterally EXT: No C/C/E; No calf tenderness bilaterally SKIN: Warm, Dry, [place], and Intact NEURO: Alert and oriented x3; Following all commands PSYCH: Normal mood and affect Test 11/24/16 09:20 11/24/16 10:53 11/27/16 06:35 11/29/16 06:00 Lactic Acid Level 1.9mmol/L (0.4-2.0) Magnesium Level 2.1mg/dL (1.6-2.6) Total Bilirubin 1.5mg/dL (0.0-1.2) Aspartate Amino Transf (AST/SGOT) 17U/L (0-50) Alanine Aminotransferase (ALT/SGPT) 15U/L (0-44) Alkaline Phosphatase 93U/L (25-160) Troponin T < 0.010ug/L (0.0-0.011) Total Protein 7.6g/dL (6.4-8.4) Albumin 4.4g/dL (3.4-5.0) Hold [place] Top Tube Received (Received) Urine Color Dark yellow (YELLOW) Urine Appearance Turbid (CLEAR,HAZY) Urine pH 6.0 (5.0-8.0) Urine Specific [place] 1.025 (1.003-1.035) Urine Protein Tracemg/dL (NEG,TRACE) Urine Glucose (UA) Negativemg/dL (NEGATIVE) Urine Ketones Tracemg/dL (NEGATIVE) Urine Occult Blood Negative (NEGATIVE) Urine Nitrite Negative (NEGATIVE) Urine Bilirubin Negative (NEGATIVE) Urine Urobilinogen Normalmg/dL (NORMAL) Urine Leukocyte Esterase Negative (NEGATIVE) Urine RBC 0-2/hpf (0-2) Urine WBC 0-5/hpf (0-5) Urine Epithelial Cells Occasional/hpf (NONE-MOD) Urine Crystals Amorphous urates (NONE Urine Bacteria None/hpf (NONE-FEW) Urine Hyaline Casts None/lpf (NONE) Urine Granular Casts None seen (NONE SEEN) Urine Waxy Casts None seen (NONE SEEN) Urine Red Blood Cell Casts None seen (NONE SEEN) Urine White Blood Cell Casts None seen (NONE SEEN) Urine Mucus None seen (None Seen) Urine Trichomonas None seen (NONE SEEN) Urine Yeast None (NONE SEEN) Urinalysis Comment None Urine Culture Reflexed Not indicated Hold Urine Received (Received) Urine Legionella pneumophilia Ag Negative (Negative) Sodium Level 141mEq/L (134-144) Potassium Level 4.5mEq/L (3.5-5.2) Chloride Level 106mEq/L (97-108) Carbon Dioxide Level 26mmol/L (18-29) Blood Urea Nitrogen 15mg/dL (8-27) Creatinine 0.67mg/dL (0.76-1.27) Estimat Glomerular Filtration Rate 127mL/min (>59) Glucose Level 92mg/dL (60-99) Calcium Level 8.7mg/dL (8.5-10.1) Procalcitonin 0.07ng/mL (See Comment) White Blood Count 13.0th/mm3 (3.8-10.1) Red Blood Count 4.40mil/mm3 (4.40-5.80) Hemoglobin 13.6g/dL (13.8-17.2) Hematocrit 41.1% (41.0-50.0) Mean Corpuscular Volume 93.4fL (81-100) Mean Corpuscular Hemoglobin 30.9pg (27.0-35.0) Mean Corpuscular Hemoglobin Concent 33.1% (32.0-37.0) Red Cell Distribution Width 13.8% (12.3-15.4) Platelet Count 271bil/L (150-400) Neutrophils (%) (Auto) 62.5% (40-74) Lymphocytes (%) (Auto) 23.1% (14-46) Monocytes (%) (Auto) 9.1% (4-12) Eosinophils (%) (Auto) 1.6% (0-5) Basophils (%) (Auto) 0.2% (0-3) Discharge Medications Discharge Medications Levofloxacin (Levaquin) 750 Mg Tablet 750 MG PO DAILYWM Prescribed by: LU LEE MD Losartan Potassium (Cozaar) 100 Mg Tablet 100 MG PO DAILY (Reported) Lovastatin (Lovastatin) 20 Mg Tablet 20 MG PO HS (Reported) Metoprolol Tartrate (Metoprolol Tartrate) 25 Mg Tablet 25 MG PO am (Reported) Metoprolol Tartrate (Metoprolol Tartrate) 25 Mg Tablet 50 MG PO evening ( Reported) Prednisone (Deltasone) 20 Mg Tablet 40 MG PO DAILYWM Prescribed by: LU LEE MD As needed Albuterol HFA (Proair HFA) 8.5 Gm Hfa.aer.ad 2 PUFFS INHALATION Q4H PRN PRN For Shortness of Breath (Reported) Albuterol Sulfate (Ventolin HFA Inhaler) 200 Puff/18 Gm Inhaler 2 PUFF INH Q4- 6H PRN PRN For Wheezing (Reported) Amitriptyline (Amitriptyline) 25 Mg Tab 25 MG PO HS PRN PRN For Sleep (Reported ) Fluticasone Propionate (Flovent HFA 220 mcg) 12 Gm Aer.w.adap 2 PUFFS IH BID PRN PRN For Shortness of Breath (Reported) Omeprazole (Omeprazole) 20 Mg Capsule.dr 20 MG PO DAILY PRN PRN For Dyspepsia or Heartburn (Reported) oxyCODONE-Acetaminophen 5-325 mg (oxyCODONE-Acetaminophen 5-325 mg) 1 Each Tablet 1 TAB PO Q6H PRN PRN For Pain (Reported) Followup Plan Disposition: Pt is discharged to home in good/stable condition. Discharge Diet: Low fat, Low Sodium, Heart Healthy Discharge Activity: No restrictions Follow-up with PCP in: 1 week (Pt to call for an appointment.) Time spent 35 minutes Lu Lee MD Nov 29, 2016 11:05
[2016-11-29 11:59] VITALS: PULSE 80; RESP 20; O2SAT 97
--- NOTE | 2016-11-29 12:11 | NUR ---
Discharge Pt d/c home with sister, self ambulated with aide at side. Pt medicated prior to leaving and a Nicotine patch applied, per pt request. Discharge info discussed with pt and pts sister, all questions answered. All personal belongings left with pt. VSS.
== END 2016-11-29 12:05 | disposition home or self-care (01) | DRG 139 ==
LOC: SED 08:52 → MPC 15:47
PROVIDERS: ADMIT Family Medicine; ATTEND Family Medicine
DX: J18.9 Pneumonia, unspecified organism (principal); J96.01 Acute respiratory failure with hypoxia; J44.1 Chronic obstructive pulmonary disease with (acute) exacerbation; F11.20 Opioid dependence, uncomplicated; F17.210 Nicotine dependence, cigarettes, uncomplicated; I10 Essential (primary) hypertension; G89.29 Other chronic pain; I25.10 Atherosclerotic heart disease of native coronary artery without angina pectoris; E78.5 Hyperlipidemia, unspecified; K21.9 Gastro-esophageal reflux disease without esophagitis

== ENCOUNTER 2017-01-29 14:41 | Emergency (ER) | payer OTHER ==
[~2017-01-29 14:41] MED LIST changes: +LEVO750T9 PO; -PRE20 PO; +PRED-508 PO
[2017-01-29 14:43] VITALS: BP 120/85; PULSE 103; RESP 18; O2SAT 99
[2017-01-29 15:59] LABS: BASOPHILS % (AUTO) 0.3 % (0-3); MONOCYTES % (AUTO) 9.8 % (4-12); Mean Corpuscular Hemoglobin 31.3 pg (27.0-35.0); Mean Corpuscular Volume 92.1 fL (81-100); NEUTROPHILS % (AUTO) 63.1 % (40-74); Platelet Count 252 bil/L (150-400)
--- NOTE | 2017-01-29 16:18 | ED.REPORT ---
HPI-Abd Pain M 40 and Over Date of Service Jan 29, 2017 ED Provider: Dr. Handley A 66 year old male presents to the ED complaining of abdominal pain onset one month ago. Associated symptoms include and vomiting. He denies any diarrhea, SOB , or chest pain. The patient was sent by Dr. Moore with concern about high WBC count. He had pneumonia in 2017. He reports no pertinent medical history. Nursing Notes Stated Complaint: ABDOMINAL PAIN Chief Complaint: General Complaint Nursing Notes Reviewed: Yes Allergies: Coded Allergies: amoxicillin (Verified Allergy, Unknown, 11/24/16) patient reports of mild nausea clavulanic acid (Verified Allergy, Unknown, 11/24/16) lisinopril (Verified Allergy, Unknown, 11/24/16) Scheduled Ciprofloxacin (Cipro) 500 Mg Tablet 500 MG PO BID Levofloxacin (Levaquin) 750 Mg Tablet 750 MG PO DAILYWM Losartan Potassium (Cozaar) 100 Mg Tablet 100 MG PO DAILY Lovastatin (Lovastatin) 20 Mg Tablet 20 MG PO HS Metoprolol Tartrate (Metoprolol Tartrate) 25 Mg Tablet 25 MG PO am Metoprolol Tartrate (Metoprolol Tartrate) 25 Mg Tablet 50 MG PO evening Metronidazole (Flagyl) 500 Mg Tablet 500 MG PO Q8H Prednisone (Deltasone) 20 Mg Tablet 40 MG PO DAILYWM Scheduled PRN Albuterol HFA (Proair HFA) 8.5 Gm Hfa.aer.ad 2 PUFFS INHALATION Q4H PRN PRN For Shortness of Breath Albuterol Sulfate (Ventolin HFA Inhaler) 200 Puff/18 Gm Inhaler 2 PUFF INH Q4- 6H PRN PRN For Wheezing Amitriptyline (Amitriptyline) 25 Mg Tab 25 MG PO HS PRN PRN For Sleep Fluticasone Propionate (Flovent HFA 220 mcg) 12 Gm Aer.w.adap 2 PUFFS IH BID PRN PRN For Shortness of Breath Omeprazole (Omeprazole) 20 Mg Capsule.dr 20 MG PO DAILY PRN PRN For Dyspepsia or Heartburn oxyCODONE-Acetaminophen 5-325 mg (oxyCODONE-Acetaminophen 5-325 mg) 1 Each Tablet 1 TAB PO Q6H PRN PRN For Pain General Time Seen by MD: 16:17 Chief Complaint Abdominal pain Hx Obtained From: Patient Arrived By: Walk-in Sudden in Onset?: No Onset Occurred: More than a week ago... (one month ago) Symptom Duration: Intermittent Severity: Current: Moderate Severity: Maximum: Moderate Recent Healthcare: Recent doctor visit Similar Sx Previous: No Past Medical History Past Medical History Notes: Admitted from 11/25/2015 - 12/02/2015: Discharge diagnoses: 1. Chronic obstructive pulmonary disease exacerbation. 2. Probable pneumonia, pneumococcal, community-acquired, right middle lobe and right lower lobe. 3. Leukocytosis, likely due to steroids. 4. Adenopathy by chest CT, with need for further followup. 5. Hypertension. 6. Chronic back pain, on chronic narcotics. Past Medical History Reports: COPD, Coronary artery disease, GERD, Hyperlipidemia, Hypertension Past Surgical History Nose operations Smoking History Current Every Day Smoker Social History Alcohol Use: 1-3 per day Drug Use: Denies drug use Other Social History: , Local resident Occupation [employer] Status Independent Review of Systems Respiratory: Denies: Shortness of breath Cardiovascular: Denies: Chest pain GI: Reports: Abdominal pain, Vomiting, Denies: Diarrhea Complete sys rev & neg: except as marked. Physical Exam Initial Vital Signs Vital Signs (First) Date Time Temp Pulse Resp B/P Pulse Ox O2 Delivery O2 Flow Rate FiO2 01/29/17 14:43 36.3 103 18 120/85 99 Room Air Initial VS: Reviewed General/Constitutional: Awake, Alert Respiratory / Chest: Atraumatic, Breath sounds NL, Breath sounds = bilat Cardiovascular: Heart rate NL, Regular rhythm, Heart sounds NL Abdomen: No guarding, No rebound lower abdominal tenderness. Back: Atraumatic, Full range of motion Head / Eyes: Atraumatic, Normocephalic, PERRL, EOMI ENT: Atraumatic, Mucous membranes moist Skin: Warm, Dry Neurologic: Oriented X3, Speech NL Neck: Atraumatic, Full range of motion Upper Extremity / MS: Atraumatic, Full range of motion Lower Extremity / Pelvis / MS: Atraumatic, Full range of motion Ankle / Foot: Atraumatic, Full range of motion Interpretation & Diagnostics Lab Results Interpretation Result Diagram: 01/29/17 1530 01/29/17 1530 Test 01/29/17 15:30 01/29/17 15:45 White Blood Count 11.7th/mm3 (3.8-10.1) Red Blood Count 4.83mil/mm3 (4.40-5.80) Hemoglobin 15.1g/dL (13.8-17.2) Hematocrit 44.5% (41.0-50.0) Mean Corpuscular Volume 92.1fL (81-100) Mean Corpuscular Hemoglobin 31.3pg (27.0-35.0) Mean Corpuscular Hemoglobin Concent 33.9% (32.0-37.0) Red Cell Distribution Width 14.5% (12.3-15.4) Platelet Count 252bil/L (150-400) Neutrophils (%) (Auto) 63.1% (40-74) Lymphocytes (%) (Auto) 24.7% (14-46) Monocytes (%) (Auto) 9.8% (4-12) Eosinophils (%) (Auto) 2.0% (0-5) Basophils (%) (Auto) 0.3% (0-3) Sodium Level 138mEq/L (134-144) Potassium Level 4.1mEq/L (3.5-5.2) Chloride Level 101mEq/L (97-108) Carbon Dioxide Level 23mmol/L (18-29) Blood Urea Nitrogen 20mg/dL (8-27) Creatinine 0.85mg/dL (0.76-1.27) Estimat Glomerular Filtration Rate 96mL/min (>59) Glucose Level 106mg/dL (60-99) Calcium Level 9.6mg/dL (8.5-10.1) Magnesium Level 2.0mg/dL (1.6-2.6) Total Bilirubin 0.7mg/dL (0.0-1.2) Aspartate Amino Transf (AST/SGOT) 22U/L (0-50) Alanine Aminotransferase (ALT/SGPT) 21U/L (0-44) Alkaline Phosphatase 75U/L (25-160) Total Protein 7.1g/dL (6.4-8.4) Albumin 4.8g/dL (3.4-5.0) Lipase 19U/L (13-60) Hold Landis Top Tube Received (Received) Hold Urine Received (Received) CT Abd / Pelvis Interpretation IMPRESSION: 1. Diverticulosis. Equivocal colonic thickening in sigmoid colon but no inflammatory stranding. ? Early diverticulitis. Recommend clinical correlation. 2. Small hiatal hernia. 3. A 1.8 cm left adrenal adenoma. Dictated by: Moni Parish M.D. on 01/29/2017 at 18:10 Approved by: Moni Parish M.D. on 01/29/2017 at 18:21 Interpretation / Wet Read by: Interpret - Radiologist Re-Eval/Medical Decision Med Decision/Clinical Course Probable early diverticulitis. Will treat with ciprofloxacin and Flagyl given the amoxicillin allergy. Patient stable for discharge. Return precautions given. Source of Hx: Old records Time of Eval: 16:17 Re-Evaluation/Progress Note: Rechecked patient and explaind plan for treatment. Counseled Regarding: Diagnosis, Lab results, Need for follow-up, When/why to return to ED Discharge & Departure Primary Impression: Diverticulitis Vital Signs - All Vital Signs Date Time Temp Pulse Resp B/P Pulse Ox O2 Delivery O2 Flow Rate FiO2 01/29/17 19:07 72 15 120/53 100 Room Air 01/29/17 17:03 80 15 124/71 100 Room Air 01/29/17 14:43 36.3 103 18 120/85 99 Room Air Patient Instructions: Diverticulitis (ED) Additional Instructions: You have diverticulitis. Take ciprofloxacin and Flagyl to treat this. Follow- up with your primary care doctor. Return to the ER or follow up with primary care if you have severe uncontrolled pain, high fever, or other concerns. Referrals: Urvashi Moore MD (PCP) Lucy Attestation Portions of this note were transcribed by Seamus Campbell. I, Dr. Handley personally performed the history, physical exam and medical decision-making; I reviewed and confirmed the accuracy of the information in the transcribed note. Signed by: Lucy Gordon, 01/29/2017 1910. copies to: Urvashi Moore MD, Timothy S DO Jan 29, 2017 16:18 Seamus Campbell Jan 29, 2017 16:32
[2017-01-29 17:03] VITALS: BP 124/71; PULSE 80; RESP 15; O2SAT 100
--- NOTE | 2017-01-29 18:23 | DRSVH ---
PROCEDURE: CT ABDOMEN AND PELVIS WITH CONTRAST ([id number]) INDICATIONS: lower abd pain and abdominal distention. TECHNIQUE: After the administration of intravenous contrast, 5 mm thick sections acquired from the diaphragm to the symphysis. 5 mm coronal and sagittal reformats were acquired. For radiation dose reduction, the following was used: automated exposure control, adjustment of mA and/or kV according to patient michael singh. COMPARISON: [facility], CT, CHEST W/O CONTRAST, 12/14/2012, 7:46. [facility] , CT, ABD/PELVIS W/CON (PNL), 01/28/2015, 16:26. FINDINGS: Image quality: Excellent. ABDOMEN: Lung bases: Lung bases are clear. Heart size is normal. Solid organs: Liver and spleen are normal in size and enhancement. Gallbladder is normal. Biliary system is non dilated. Pancreas enhances normally. There is a 1.8 cm left adrenal nodule. It is unch anged since 12/14/2012. On the prior nonenhanced CT, it has CT density 4.1 HU, compatible with a adeno ma. Kidneys demonstrate normal size and enhancement, without hydronephrosis. Peritoneum and bowel: Bowel loops demonstrate normal wall thickness and caliber. There are scattere d colonic diverticula. There is equivocal colonic wall thickening in sigmoid colon. No inflammatory s tranding. Appendix is normal. No free fluid or air. Nodes and vessels: No retroperitoneal or mesenteric adenopathy by size criteria. Aorta and inferior vena cava are normal in size. Moderate atherosclerosis. Miscellaneous: No ventral hernias. PELVIS: Genitourinary: Bladder wall thickness is normal. Miscellaneous: No inguinal adenopathy. Small fat containing inguinal hernias bilaterally. Bones: No suspicious bony lesions. No vertebral body compression fractures. IMPRESSION: 1. Diverticulosis. Equivocal colonic thickening in sigmoid colon but no inflammatory stranding. ? Ear ly diverticulitis. Recommend clinical correlation. 2. Small hiatal hernia. 3. A 1.8 cm left adrenal adenoma. Dictated by: Moni Parish M.D. on 01/29/2017 at 18:10 Approved by: Moni Parish M.D. on 01/29/2017 at 18:21
[2017-01-29] MEDS ORDERED: METR500T PO (18:35)
[2017-01-29] MEDS ORDERED: CIPR-231 PO (18:35)
[2017-01-29 19:07] VITALS: BP 120/53; PULSE 72; RESP 15; O2SAT 100
== END 2017-01-29 19:05 | disposition home or self-care (01) ==
LOC: SED 14:41
DX: K57.90 Diverticulosis of intestine, part unspecified, without perforation or abscess without bleeding (principal); J44.9 Chronic obstructive pulmonary disease, unspecified; I25.10 Atherosclerotic heart disease of native coronary artery without angina pectoris; K21.9 Gastro-esophageal reflux disease without esophagitis; E78.5 Hyperlipidemia, unspecified; I10 Essential (primary) hypertension; I25.2 Old myocardial infarction; F17.200 Nicotine dependence, unspecified, uncomplicated; Z88.0 Allergy status to penicillin; Z88.8 Allergy status to other drugs, medicaments and biological substances; Z87.01 Personal history of pneumonia (recurrent)
CPT/HCPCS: 36415; 74177; 80053; 83690; 83735; 85025; 99284; Q9967

== ENCOUNTER 2017-03-23 10:40 | Emergency (ER) | payer OTHER ==
[~2017-03-23] VITALS: Ht 175.3 cm; Wt 85.5 kg
[~2017-03-23 10:40] MED LIST changes: +CIPR-231 PO; +METR500T PO
[2017-03-23 10:45] VITALS: BP 129/78; PULSE 99; RESP 28; O2SAT 100
--- NOTE | 2017-03-23 10:59 | ED.REPORT ---
HPI-Dyspnea / Wheezing Date of Service March 23, 2017 ED Provider: History of Present Illness: started yesterday. uses albuterol. john is primary care. has had previous steroid use. COPD is previous dx. ran out of pain medication also Nursing Notes Stated Complaint: SHORTNESS OF BREATH Chief Complaint: Respiratory Distress Nursing Notes Reviewed: Yes Allergies: Coded Allergies: amoxicillin (Verified Allergy, Unknown, 11/24/16) patient reports of mild nausea clavulanic acid (Verified Allergy, Unknown, 11/24/16) lisinopril (Verified Allergy, Unknown, 11/24/16) Scheduled Ciprofloxacin (Cipro) 500 Mg Tablet 500 MG PO BID Levofloxacin (Levaquin) 750 Mg Tablet 750 MG PO DAILYWM Losartan Potassium (Cozaar) 100 Mg Tablet 100 MG PO DAILY Lovastatin (Lovastatin) 20 Mg Tablet 20 MG PO HS Metoprolol Tartrate (Metoprolol Tartrate) 25 Mg Tablet 25 MG PO am Metoprolol Tartrate (Metoprolol Tartrate) 25 Mg Tablet 50 MG PO evening Metronidazole (Flagyl) 500 Mg Tablet 500 MG PO Q8H Prednisone (Deltasone) 20 Mg Tablet 40 MG PO DAILYWM Scheduled PRN Albuterol HFA (Proair HFA) 8.5 Gm Hfa.aer.ad 2 PUFFS INHALATION Q4H PRN PRN For Shortness of Breath Albuterol Sulfate (Ventolin HFA Inhaler) 200 Puff/18 Gm Inhaler 2 PUFF INH Q4- 6H PRN PRN For Wheezing Amitriptyline (Amitriptyline) 25 Mg Tab 25 MG PO HS PRN PRN For Sleep Fluticasone Propionate (Flovent HFA 220 mcg) 12 Gm Aer.w.adap 2 PUFFS IH BID PRN PRN For Shortness of Breath Omeprazole (Omeprazole) 20 Mg Capsule.dr 20 MG PO DAILY PRN PRN For Dyspepsia or Heartburn oxyCODONE-Acetaminophen 5-325 mg (oxyCODONE-Acetaminophen 5-325 mg) 1 Each Tablet 1 TAB PO Q6H PRN PRN For Pain General Time Seen by MD: 10:55 Chief Complaint Shortness of breath, Wheezing Hx Obtained From: Patient Sudden in Onset?: No Onset Occurred: Yesterday Past Medical History Past Medical History Notes: Admitted from 11/25/2015 - 12/02/2015: Discharge diagnoses: 1. Chronic obstructive pulmonary disease exacerbation. 2. Probable pneumonia, pneumococcal, community-acquired, right middle lobe and right lower lobe. 3. Leukocytosis, likely due to steroids. 4. Adenopathy by chest CT, with need for further followup. 5. Hypertension. 6. Chronic back pain, on chronic narcotics. 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 Ambulatory Status Independent Review of Systems Basic Review of Systems Eyes: Vision NL, No discharge Hematologic: No bleeding, No bruising Psychiatric: Normal thought content Physical Exam Initial Vital Signs Vital Signs (First) Date Time Temp Pulse Resp B/P Pulse Ox O2 Delivery O2 Flow Rate FiO2 03/23/17 10:45 99 28 129/78 100 03/23/17 11:48 Room Air 03/23/17 12:53 2 Initial VS: Reviewed, Vital signs normal Head / Eyes: Atraumatic, Normocephalic, PERRL ENT: Mucous membranes moist, Conjunctiva normal, No scleral icterus Abdomen / GI: Soft, Non-tender, No guarding, No rebound, No distention Back: No CVA tenderness Lymphatic: No lymphadenopathy Extremities: Vascular intact, Neuro intact, No swelling, No tenderness Skin: Warm, Dry, No cyanosis Neurologic: Alert, Oriented, Nonfocal Psychiatric: Mood/affect normal, Behavior normal, Normal thought content General/Constitutional: Awake, Alert, No acute distress, Well appearing, Well developed, Well hydrated Neck: Atraumatic, Supple, No meningismus, Full range of motion, No adenopathy Respiratory / Chest: Atraumatic Wheezing / Retractions: Positive: Wheeze insp/exp diffuse, Wheezing expiratory , Wheezing moderate After nebulizer wheezing decreased by at least 50% Cardiovascular: Heart rate NL, Regular rhythm, Heart sounds NL, No gallop ENT: Atraumatic, Airway patent, Mucous membranes moist, Pharynx NL Interpretation & Diagnostics Lab Results Interpretation Result Diagram: 03/23/17 1111 03/23/17 1111 Test 03/23/17 11:11 White Blood Count 9.4th/mm3 (3.8-10.1) Red Blood Count 4.76mil/mm3 (4.40-5.80) Hemoglobin 15.0g/dL (13.8-17.2) Hematocrit 44.0% (41.0-50.0) Mean Corpuscular Volume 92.4fL (81-100) Mean Corpuscular Hemoglobin 31.5pg (27.0-35.0) Mean Corpuscular Hemoglobin Concent 34.1% (32.0-37.0) Red Cell Distribution Width 13.6% (12.3-15.4) Platelet Count 257bil/L (150-400) Neutrophils (%) (Auto) 62.6% (40-74) Lymphocytes (%) (Auto) 23.1% (14-46) Monocytes (%) (Auto) 10.7% (4-12) Eosinophils (%) (Auto) 3.2% (0-5) Basophils (%) (Auto) 0.3% (0-3) Sodium Level 138mEq/L (134-144) Potassium Level 4.4mEq/L (3.5-5.2) Chloride Level 101mEq/L (97-108) Carbon Dioxide Level 24mmol/L (18-29) Blood Urea Nitrogen 15mg/dL (8-27) Creatinine 0.72mg/dL (0.76-1.27) Estimat Glomerular Filtration Rate 117mL/min (>59) Glucose Level 106mg/dL (60-99) Calcium Level 9.3mg/dL (8.5-10.1) Total Bilirubin 0.8mg/dL (0.0-1.2) Aspartate Amino Transf (AST/SGOT) 21U/L (0-50) Alanine Aminotransferase (ALT/SGPT) 18U/L (0-44) Alkaline Phosphatase 82U/L (25-160) Troponin T 0.010ug/L (0.0-0.011) Total Protein 6.8g/dL (6.4-8.4) Albumin 4.5g/dL (3.4-5.0) Hold Landis Top Tube Received (Received) X-Ray Chest Interpretation Chest Xray Interpretation: OCEDURE: X-RAY CHEST, TWO VIEWS ([id number]) INDICATIONS: cough TECHNIQUE: 2 views of the chest were acquired. COMPARISON: [facility], CR, XR CHEST 2VW, 11/26/2016, 12:37. FINDINGS: Surgical changes and devices: None. Lungs and pleura: No pleural effusions or pneumothorax. Lungs are clear. Mediastinum: Mediastinal contours are normal. Heart size is normal. There is aortic atherosclerosis. Left carotid artery atherosclerosis is noted. Bones and chest wall: No suspicious bony abnormalities. Degenerative changes of the spine and shoulders are noted. Soft tissues appear unremarkable. IMPRESSION: Stable chest. No acute cardiopulmonary process is evident. Dictated by: Scott Marquez M.D. on 03/23/2017 at 10:51 Approved by: Scott Marquez M.D. on 03/23/2017 at 10:52 Re-Eval/Medical Decision Med Decision/Clinical Course 66 year old male presents to the ER for breathing difficulties which started yesterday. Patient also reporting he is out of pain medications provided by DR. John. Chest x-ray is negative for pneumonia. Patient had an excellent response to the nebulizer and the steroids. Discussed with Dr. John. She will manage the ongoing pain medications and have a follow up appointment for him for next week. Exam does not indicate any pneumonia or OR. EKG and troponin are normal. Discharge & Departure Impression: Primary Impression: COPD exacerbation Disposition: Home Patient Instructions: How to Use a Nebulizer (ED), Chronic Obstructive Pulmonary Disease (ED) Additional Instructions: Your chest x-ray is normal. Your EKG is normal. Your labs are normal including the troponin. No sign of a cardiac event. You have had an excellent response to the nebulizer with a double duo neb. You are being provided a prescription for for a nebulizer machine along with medication for that machine. Continue with the steroids, prednisone 60 mg daily for 4 days, then 50 mg daily for 4 days then 40 mg daily for 4 days, then 30 mg daily for 4 days then 20 mg daily for 4 days then 10 mg daily for 4 days. Consider stopping smoking. You pain medication has been refilled by Dr. John. 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 She will also have an appointment for you for follow up next week. Start omeprazole while taking steroids. The steroids can cause upset stomach. Referrals: Urvashi John MD (PCP) EDSupervising Provider for APC: Albert Handley DO copies to: Urvashi John MD, Sue ARNP March 23, 2017 10:59
[2017-03-23] MEDS ORDERED: Albuterol-Ipratropium 3 mL Inhalation Solution NEB ONE (11:05)
[2017-03-23] MEDS ORDERED: Dexamethasone 20 mg/2 mL Oral Solution PO ONE (11:05)
[2017-03-23 11:23] LABS: BASOPHILS % (AUTO) 0.3 % (0-3); EOSINOPHILS % (AUTO) 3.2 % (0-5); MONOCYTES % (AUTO) 10.7 % (4-12); Mean Corpuscular Hemoglobin 31.5 pg (27.0-35.0); Mean Corpuscular Volume 92.4 fL (81-100); NEUTROPHILS % (AUTO) 62.6 % (40-74); Platelet Count 257 bil/L (150-400)
[2017-03-23 11:47] LABS: TROPONIN T 0.01 ug/L (0.0-0.011)
[2017-03-23 11:48] VITALS: BP 123/74; PULSE 98; RESP 20; O2SAT 96
--- NOTE | 2017-03-23 11:53 | DRSVH ---
PROCEDURE: X-RAY CHEST, TWO VIEWS ([id number]) INDICATIONS: cough TECHNIQUE: 2 views of the chest were acquired. COMPARISON: [facility], CR, XR CHEST 2VW, 11/26/2016, 12:37. FINDINGS: Surgical changes and devices: None. Lungs and pleura: No pleural effusions or pneumothorax. Lungs are clear. Mediastinum: Mediastinal contours are normal. Heart size is normal. There is aortic atherosclerosi s. Left carotid artery atherosclerosis is noted. Bones and chest wall: No suspicious bony abnormalities. Degenerative changes of the spine and shoul ders are noted. Soft tissues appear unremarkable. IMPRESSION: Stable chest. No acute cardiopulmonary process is evident. Dictated by: Scott Marquez M.D. on 03/23/2017 at 10:51 Approved by: Scott Marquez M.D. on 03/23/2017 at 10:52
[2017-03-23 12:53] VITALS: BP 126/68; PULSE 97; RESP 13; O2SAT 98
[2017-03-23 13:01] VITALS: BP 126/68; PULSE 97; RESP 13; O2SAT 98
== END 2017-03-23 12:40 | disposition home or self-care (01) ==
LOC: SED 10:40
DX: J44.1 Chronic obstructive pulmonary disease with (acute) exacerbation (principal); I11.9 Hypertensive heart disease without heart failure; I25.10 Atherosclerotic heart disease of native coronary artery without angina pectoris; K21.9 Gastro-esophageal reflux disease without esophagitis; E78.5 Hyperlipidemia, unspecified; F17.200 Nicotine dependence, unspecified, uncomplicated; Z88.1 Allergy status to other antibiotic agents; Z88.8 Allergy status to other drugs, medicaments and biological substances
CPT/HCPCS: 36415; 71020; 80053; 84484; 85025; 93005; 99285; J7620

== ENCOUNTER 2017-04-21 09:44 | Emergency (ER) | payer OTHER ==
[~2017-04-21] VITALS: Ht 175.3 cm; Wt 84.1 kg
[2017-04-21 09:47] VITALS: BP 156/83; PULSE 81; RESP 15; O2SAT 98
--- NOTE | 2017-04-21 10:02 | ED.REPORT ---
HPI-General Illness Date of Service Apr 21, 2017 ED Provider: Iliana Banda MD Pt is a 66 y/o male w/ a hx of recent diverticulitis and abx treatment, CAD, HTN , presenting to the ED c/o abdominal pain onset 3 days ago. He c/o associated nausea, vomiting, diarrhea, diaphoresis, discoloration of the extremities, dyspnea on exertion. He denies cough, SOB, CP. He had diverticulitis 1.5 months ago and was treated with antibiotics with good relief. He takes 5-6 Percocet each day for chronic back pain and has not missed any doses other than this morning and is not out of his medication. He was prescribed #150 Oxycodone on March 23 to last until April 28. Nursing Notes Stated Complaint: PAIN ALL OVER BODY Chief Complaint: Male Abdominal Pain Nursing Notes Reviewed: Yes Allergies: Coded Allergies: [place] (Verified Allergy, Severe, COULDN'T BREATHE, 04/21/17) amoxicillin (Verified Allergy, Unknown, 11/24/16) patient reports of mild nausea clavulanic acid (Verified Allergy, Unknown, 11/24/16) lisinopril (Verified Allergy, Unknown, 11/24/16) Scheduled Ciprofloxacin (Cipro) 500 Mg Tablet 500 MG PO BID Levofloxacin (Levaquin) 750 Mg Tablet 750 MG PO DAILYWM Losartan Potassium (Cozaar) 100 Mg Tablet 100 MG PO DAILY Lovastatin (Lovastatin) 20 Mg Tablet 20 MG PO HS Metoprolol Tartrate (Metoprolol Tartrate) 25 Mg Tablet 25 MG PO am Metoprolol Tartrate (Metoprolol Tartrate) 25 Mg Tablet 50 MG PO evening Metronidazole (Flagyl) 500 Mg Tablet 500 MG PO Q8H Polyethylene Glycol 3350 (Miralax) 17 Gm Powd.pack 17 GM PO BID Prednisone (Deltasone) 20 Mg Tablet 40 MG PO DAILYWM Scheduled PRN Albuterol HFA (Proair HFA) 8.5 Gm Hfa.aer.ad 2 PUFFS INHALATION Q4H PRN PRN For Shortness of Breath Albuterol Sulfate (Ventolin HFA Inhaler) 200 Puff/18 Gm Inhaler 2 PUFF INH Q4- 6H PRN PRN For Wheezing Amitriptyline (Amitriptyline) 25 Mg Tab 25 MG PO HS PRN PRN For Sleep Fluticasone Propionate (Flovent HFA 220 mcg) 12 Gm Aer.w.adap 2 PUFFS IH BID PRN PRN For Shortness of Breath Omeprazole (Omeprazole) 20 Mg Capsule.dr 20 MG PO DAILY PRN PRN For Dyspepsia or Heartburn oxyCODONE-Acetaminophen 5-325 mg (oxyCODONE-Acetaminophen 5-325 mg) 1 Each Tablet 1 TAB PO Q6H PRN PRN For Pain General Time Seen by MD: 09:55 Chief Complaint Abdominal pain Hx Obtained From: Patient Arrived By: Walk-in Sudden in Onset?: No Onset Occurred: 3 days ago Symptom Duration: Since onset Location: : Abdomen Quality: Painful Severity: Current: Moderate Severity: Maximum: Moderate Past Medical History Past Medical History admit pneumonia 11/2015 Chronic back pain, on chronic narcotics TIA Recent diverticulitis Hx facial osteomyelitis Reports: COPD, Coronary artery disease, GERD, Hyperlipidemia, Hypertension Past Surgical History Multiple nose operations - Tamir Gross Knee Cardiac catheterization Foot Smoking History Current Every Day Smoker Social History Alcohol Use: "Social" Drug Use: THC Other Social History: , Local resident Occupation lives with , 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 Physical Exam Vital Signs Vital Signs Date Time Temp Pulse Resp B/P Pulse Ox O2 Delivery O2 Flow Rate FiO2 04/21/17 13:40 88 15 148/80 98 Room Air 04/21/17 09:47 35.5 81 15 156/83 98 Room Air Initial VS: Reviewed, Vital signs abnormal ENT: Mucous membranes moist, Conjunctiva normal, No scleral icterus Neck: Supple, Full range of motion Extremities: Neuro intact, No swelling, No tenderness Neurologic: Alert, Oriented, Nonfocal Psychiatric: Mood/affect normal, Behavior normal, Normal thought content General/Constitutional: Awake, Alert, Cooperative, Not toxic appearing Distress / Hydration: Positive: Distress mild Head / Eyes: Atraumatic, Normocephalic, PERRL Conjunctiva / Sclera: Positive: Icteric (mild) Respiratory / Chest: Breath sounds NL, Breath sounds = bilat, No rales, No rhonchi, No wheezing, No stridor Becomes tachypneic and visibly dyspneic while moving to a sitting position Cardiovascular: Heart rate NL, Regular rhythm, Heart sounds NL, No gallop, No murmurs, No rubs, Cap refill not delayed Vasoconstriction and cool peripheral extremities Abdomen: Atraumatic, Soft, No guarding, No rebound, No distention Bowel Sounds / Distention: Positive: Bowel sounds hyperactive Diffusely suprapubic abdominal tenderness Skin: Atraumatic, No rash, Dry Vasoconstriction and cool peripheral extremities. Interpretation & Diagnostics Interpretation & Diagnostics: U tox-clean. Pt is reportadly on percoset 5-6/day. says he did take yesterdays meds, but not this am Lab Results Interpretation Result Diagram: 04/21/17 1013 04/21/17 1013 Test 04/21/17 10:13 04/21/17 10:54 White Blood Count 12.0th/mm3 (3.8-10.1) Red Blood Count 4.63mil/mm3 (4.40-5.80) Hemoglobin 14.9g/dL (13.8-17.2) Hematocrit 44.0% (41.0-50.0) Mean Corpuscular Volume 95.0fL (81-100) Mean Corpuscular Hemoglobin 32.2pg (27.0-35.0) Mean Corpuscular Hemoglobin Concent 33.9% (32.0-37.0) Red Cell Distribution Width 13.9% (12.3-15.4) Platelet Count 213bil/L (150-400) Neutrophils (%) (Auto) 71.0% (40-74) Lymphocytes (%) (Auto) 17.6% (14-46) Monocytes (%) (Auto) 9.3% (4-12) Eosinophils (%) (Auto) 1.7% (0-5) Basophils (%) (Auto) 0.2% (0-3) D-Dimer < 0.50mg/L FEU (<0.50) Sodium Level 139mEq/L (134-144) Potassium Level 4.7mEq/L (3.5-5.2) Chloride Level 101mEq/L (97-108) Carbon Dioxide Level 23mmol/L (18-29) Blood Urea Nitrogen 22mg/dL (8-27) Creatinine 1.09mg/dL (0.76-1.27) Estimat Glomerular Filtration Rate 72mL/min (>59) Glucose Level 110mg/dL (60-99) Calcium Level 9.6mg/dL (8.5-10.1) Total Bilirubin 1.1mg/dL (0.0-1.2) Aspartate Amino Transf (AST/SGOT) 29U/L (0-50) Alanine Aminotransferase (ALT/SGPT) 29U/L (0-44) Alkaline Phosphatase 78U/L (25-160) Troponin T 0.010ug/L (0.0-0.011) Pro-B-Type Natriuretic Peptide 104.7pg/mL (0-210) Total Protein 6.6g/dL (6.4-8.4) Albumin 4.1g/dL (3.4-5.0) Procalcitonin 0.06ng/mL (0.00-0.08) Urine Color Yellow (YELLOW) Urine Appearance Hazy (CLEAR,HAZY) Urine pH 7.0 (5.0-8.0) Urine Specific [place] 1.010 (1.003-1.035) Urine Protein Negativemg/dL (NEG,TRACE) Urine Glucose (UA) Negativemg/dL (NEGATIVE) Urine Ketones Negativemg/dL (NEGATIVE) Urine Occult Blood Negative (NEGATIVE) Urine Nitrite Negative (NEGATIVE) Urine Bilirubin Negative (NEGATIVE) Urine Urobilinogen Normalmg/dL (NORMAL) Urine Leukocyte Esterase Negative (NEGATIVE) Urine RBC 3-10/hpf (0-2) Urine WBC 0-5/hpf (0-5) Urine Epithelial Cells Occasional/hpf (NONE-MOD) Urine Crystals None seen (NONE SEEN) Urine Bacteria None/hpf (NONE-FEW) Urine Hyaline Casts None/lpf (NONE) Urine Granular Casts None seen (NONE SEEN) Urine Waxy Casts None seen (NONE SEEN) Urine Red Blood Cell Casts None seen (NONE SEEN) Urine White Blood Cell Casts None seen (NONE SEEN) Urine Mucus Present (None Seen) Urine Trichomonas None seen (NONE SEEN) Urine Yeast None (NONE SEEN) Urinalysis Comment None Urine Culture Reflexed Not indicated ECG Interpretation ECG Interpretation: Sinus rhythm rate 80 Probable LAE Similar to 03/23/17 but more pronounced T waves Time: 11:30 Interpreted by: ED physician Normal ECG Interpretation: No acute ischemic changes X-Ray Chest Interpretation Chest Xray Interpretation: IMPRESSION: 1. No acute cardiopulmonary disease. Dictated by: Stiven Ignacio M.D. on 04/21/2017 at 10:47 Approved by: Stiven Ignacio M.D. on 04/21/2017 at 10:47 View: Portable, 1 view Interpretation / Wet Read by: Interpret - Radiologist Re-Eval/Medical Decision Time of Eval: 13:03 Re-Evaluation/Progress Note: Pt rechecked. Still experiencing pain but this is decreased. Informed pt of plan for treatment. Pt understands and agrees with plan for treatment. F/U instructions and RTER warnings given. All questions addressed. Counseled Regarding: Diagnosis, Lab results, Need for follow-up, When/why to return to ED Discharge & Departure Primary Impression: Diarrhea Diarrhea type: unspecified type Qualified Code: R19.7 - Diarrhea, unspecified Additional Impression: Generalized abdominal pain Disposition: Home Discharge Condition All VS Reviewed: Yes Condition: Stable Patient Instructions: Acute Abdominal Pain (ED), Acute Diarrhea (ED), Constipation (ED) Additional Instructions: The cause of your symptoms is unclear at the moment but does not seem dangerous. Your labs, EKG, and chest x-ray were all normal. There was no sign of infection , anemia, pneumonia, heart attack, or other dangerous findings. Try to stay well hydrated and eat frequent small meals. Narcotic pain medication notoriously causes constipation. You can use Miralax for this. Take 1 scoop of Miralax each time you take a dose of narcotic pain medication. I am also prescribing magnesium citrate for your constipation. Return to the emergency department if you experience persistent vomiting, high fever, uncontrollable pain, or for other concerning symptoms. Follow-up with your primary care physician later this week or early next week. Referrals: Urvashi Moore MD (PCP) Miguelitoibsamantha Attestation Portions of this note were transcribed by Georgi Perez. I, Dr. Banda personally performed the history, physical exam and medical decision-making; I reviewed and confirmed the accuracy of the information in the transcribed note. Signed by Lucy Moore, 04/21/17 - [id number] copies to: Urvashi Moore MD, Shawna L MD Apr 21, 2017 10:02 GEORGI PEREZ Apr 21, 2017 10:09
[2017-04-21] MEDS ORDERED: Hydrocortisone 50 mg/mL 2 mL Inj IVPUSH ONE (10:15)
[2017-04-21] MEDS ORDERED: oxyCODONE-Acetamin 5-325 mg Tablet PO ONE (10:15)
[2017-04-21] MEDS ORDERED: 0.9% Sodium Chloride 1,000 ML IV ONE (10:15)
--- NOTE | 2017-04-21 10:48 | DRSVH ---
PROCEDURE: X-RAY CHEST ONE VIEW, PORTABLE ([id number]) INDICATIONS: dyspnea TECHNIQUE: One view of the chest was acquired. COMPARISON: [facility], CR, XR CHEST 1VW (PORTABLE), 01/07/2016, 11:15. FINDINGS: Surgical changes and devices: None. Lungs and pleura: No pleural effusions or pneumothorax. Lungs are clear. Mediastinum: Mediastinal contours appear normal. Heart size is normal. Bones and chest wall: No suspicious bony lesions. Overlying soft tissues appear unremarkable. IMPRESSION: 1. No acute cardiopulmonary disease. Dictated by: Stiven Ignacio M.D. on 04/21/2017 at 10:47 Approved by: Stiven Ignacio M.D. on 04/21/2017 at 10:47
[2017-04-21 10:50] LABS: BASOPHILS % (AUTO) 0.2 % (0-3); EOSINOPHILS % (AUTO) 1.7 % (0-5); MONOCYTES % (AUTO) 9.3 % (4-12); Mean Corpuscular Hemoglobin 32.2 pg (27.0-35.0); Platelet Count 213 bil/L (150-400)
[2017-04-21 11:10] LABS: TROPONIN T 0.01 ug/L (0.0-0.011)
[2017-04-21 11:12] LABS: APPEARANCE,URINE HAZY (CLEAR,HAZY); COLOR,URINE YELLOW (YELLOW); OCCULT BLOOD,URINE NEGATIVE (NEGATIVE); UROBILINOGEN,URINE NORMAL (NORMAL)
[2017-04-21] MEDS ORDERED: POLY17PO6 PO (13:28)
[2017-04-21 13:40] VITALS: BP 148/80; PULSE 88; RESP 15; O2SAT 98
== END 2017-04-21 13:44 | disposition home or self-care (01) ==
LOC: SED 09:44
DX: R19.7 Diarrhea, unspecified (principal); R10.84 Generalized abdominal pain; R11.2 Nausea with vomiting, unspecified; R61 Generalized hyperhidrosis; R06.00 Dyspnea, unspecified; J44.9 Chronic obstructive pulmonary disease, unspecified; E78.5 Hyperlipidemia, unspecified; K21.9 Gastro-esophageal reflux disease without esophagitis; I10 Essential (primary) hypertension; F17.200 Nicotine dependence, unspecified, uncomplicated; I25.10 Atherosclerotic heart disease of native coronary artery without angina pectoris; Z86.73 Personal history of transient ischemic attack (TIA), and cerebral infarction without residual deficits; Z87.01 Personal history of pneumonia (recurrent); Z88.1 Allergy status to other antibiotic agents; Z88.8 Allergy status to other drugs, medicaments and biological substances
CPT/HCPCS: 36415; 71010; 80053; 81000; 83880; 84145; 84484; 85025; 85378; 87507; 93005; 96361; 96374; 99285; J1720; J7030